=== PATIENT | male | born 1975 | race Caucasian/White ===

== ENCOUNTER 2016-12-05 00:27 | Emergency (ER) | payer MEDICAID ==
[2016-12-05 00:37] VITALS: RESP 20
[2016-12-05 00:54] LABS: BASO % 0.4 % (0.0-2.0); EOS % 0.8 % (0.0-4.0); HEMATOCRIT 49.5 % (35.0-51.0); LYMPH # 1.5 K/uL (1.0-4.3); LYMPH % 34.5 % (20.0-40.0); MEAN CELL VOLUME 81.9 fL (80.0-94.0); MEAN CORPUSCULAR HEMOGLOBIN 28.3 pg (27.0-31.0); MEAN CORPUSCULAR HGB CONC 34.6 g/dL (33.0-37.0); MEAN PLATELET VOLUME 8.2 fL (7.2-11.7); MONO # 0.3 K/uL (0.0-0.8); MONO % 5.9 % (0.0-10.0); NRBC % 0.4 % (0.0-2.0); RED CELL DISTRIBUTION WIDTH 12.9 % (11.5-14.5); WHITE BLOOD COUNT 4.3 K/uL (4.8-10.8)
[2016-12-05 02:38] LABS: RBC URINE 4 /hpf (0-3); URINE BILIRUBIN NEGATIVE (NEGATIVE); URINE BLOOD NEGATIVE (NEGATIVE); URINE COLOR Yellow (YELLOW); URINE GLUCOSE (UA) NORMAL (Normal); URINE KETONE NEGATIVE (NEGATIVE); URINE LEUKOCYTE ESTERASE NEG Leu/uL (Negative); URINE PROTEIN NEGATIVE (NEGATIVE); URINE UROBILINOGEN NORMAL mg/dL (0.2-1.0); WBC URINE < 1 /hpf (0-5)
[2016-12-05 03:05] LABS: ALB/GLOB RATIO 1.2 (1.0-2.1); ALKALINE PHOSPHATASE 79 U/L (38-126); ALT/SGPT 41 U/L (21-72); AST/SGOT 51 U/L (17-59); BLOOD UREA NITROGEN 12 mg/dL (9-20); CALCIUM 9.4 mg/dl (8.6-10.4); CARBON DIOXIDE 25 mmol/L (22-30); CHLORIDE 101 mmol/L (98-107); GFR AFRICAN-AMERICAN > 60; GLUCOSE,RANDOM 125 mg/dL (75-110); POTASSIUM 4.1 mmol/L (3.6-5.2); SODIUM 141 mmol/L (132-148); TOTAL PROTEIN 7.7 g/dL (6.3-8.3)
[2016-12-05] MEDS ORDERED: Alum-Mag Hydrox-Simethicone Susp (30 mL) PO STA (03:23)
[2016-12-05] MEDS ORDERED: Aluminum Hydroxide/Magnesium Hydroxide Susp (30 mL) ONE (03:25)
[2016-12-05 05:00] VITALS: O2SAT 98
--- NOTE | 2016-12-05 05:09 | C.PDOC ---
Time Seen by Provider: 12/05/16 00:40 Chief Complaint (Nursing): Abdominal Pain History Per: Patient, Family Onset/Duration Of Symptoms: Hrs (tonight), Waxing/Waning Current Symptoms Are (Timing): Still Present Severity: Moderate Location Of Pain/Discomfort: Epigastric Radiation Of Pain To:: Back Quality Of Discomfort: "Pain" Alleviating Factors: None Last Bowel Movement: Today Additional History Per: Prior Records Past Medical History Reviewed: Historical Data, Nursing Documentation, Vital Signs Vital Signs: Last Vital Signs Temp 97.4 F L 12/05/16 04:59 Pulse 68 12/05/16 04:59 Resp 20 12/05/16 04:59 BP 149/77 12/05/16 04:59 Pulse Ox 98 12/05/16 05:09 - Medical History PMH: HTN, Hyperlipidemia Surgical History: No Surg Hx Family History: States: Unknown Family Hx - Social History Hx Alcohol Use: No Hx Substance Use: No - Immunization History Hx Tetanus Toxoid Vaccination: No Hx Influenza Vaccination: Yes Hx Pneumococcal Vaccination: No Review Of Systems Except As Marked, All Systems Reviewed And Found Negative. Constitutional: Negative for: Fever Cardiovascular: Negative for: Chest Pain Respiratory: Negative for: Shortness of Breath Gastrointestinal: Negative for: Nausea, Vomiting, Diarrhea Genitourinary: Negative for: Dysuria Musculoskeletal: Negative for: Neck Pain Skin: Negative for: Rash Neurological: Negative for: Weakness, Numbness, Seizures, Altered Mental Status Physical Exam - Physical Exam Appears: Non-toxic, No Acute Distress Skin: Normal Color, Warm, Dry, No Rash Head: Atraumatic, Normacephalic Eye(s): bilateral: Normal Inspection, PERRL, EOMI Neck: Normal ROM, Supple Cardiovascular: Rhythm Regular Respiratory: Normal Breath Sounds, No Accessory Muscle Use Gastrointestinal/Abdominal: Soft, Tenderness (epigastric) Back: No CVA Tenderness Extremity: Normal ROM Neurological/Psych: Oriented x3, Normal Motor, Normal Sensation ED Course And Treatment - Laboratory Results Result Diagrams: 12/05/16 00:50 12/05/16 00:50 Lab Interpretation: No Acute Changes O2 Sat by Pulse Oximetry: 98 Pulse Ox Interpretation: Normal - CT Scan/US RUQ Sono Other Rad Studies (CT/US): Read By Radiologist, Radiology Report Reviewed CT/US Interpretation: IMPRESSION: . Cholelithiasis without evidence of cholecystitis. Progress Note: Pt's pain resolved. Pt is now asymptomatic. No abdominal pain or tenderness. Reassessment Condition: Improved Progress - Interventions Interventions:: Observation - Medications Administered Intravenous: Antiemetic, H-2 tim, Opiate - Data Reviewed Data Reviewed: Lab, Diagnostic imaging, Old records - Patient Status Patient status: Completely improved - Continuity of Care Discussed patient case with:: Patient, Family-HIPPA compliant, ED Nurse - Patient Plan Patient Plan: Discharge, F/U with PCP, Continue present meds Disposition Counseled Patient/Family Regarding: Studies Performed, Diagnosis, Need For Followup, Rx Given - Disposition Referrals: Joanna Barnes MD [Staff Provider] - Raymundo Leggett MD [Staff Provider] - Disposition: HOME/ ROUTINE Disposition Time: 06:03 Condition: IMPROVED Additional Instructions: Follow up with a General surgeon for further evaluation and treatment. Return to the ER if you develop fever, vomiting, pain that persists for hours, worsening of symptoms or if you have any other concerns. Prescriptions: oxyCODONE/Acetaminophen [Percocet 5/325 mg Tab] 1 tab PO Q4 PRN #12 tab PRN Reason: Pain, Severe (8-10) Instructions: Biliary Colic (ED) Forms: [employer] (German) - Clinical Impression Clinical Impression: Biliary colic
--- NOTE | 2016-12-05 05:51 | US ---
EXAM: US Abdomen Limited, Right Upper Quadrant CLINICAL HISTORY: 41 years old, male; Pain; Abdominal pain; Epigastric; Additional info: Epigastric pain TECHNIQUE: Real-time ultrasound of the right upper quadrant with image documentation. EXAM DATE/TIME: 12/05/2016 3:22 AM COMPARISON: No relevant prior studies available. FINDINGS: There is a negative sonographic Mccallum's sign per pathology technologist. Gallstones are present, one of which is lodged in the neck. No pericholecystic fluid. The gallbladder wall measures 2 mm which is within normal limits. The common bile duct measures 7 mm which is borderline dilated. No hepatic masses identified. The pancreas is suboptimally visualized. No right hydronephrosis. Right kidney measures 11 cm in length. IMPRESSION: Cholelithiasis without evidence of cholecystitis. Borderline dilated common bile duct. Recommend correlation with laboratory values.
[2016-12-05 06:17] VITALS: BP 149/70; PULSE 72; TEMP 97.3
== END 2016-12-05 06:16 | disposition home or self-care (01) ==
LOC: C.ER 00:27
DX: K80.20 Calculus of gallbladder without cholecystitis without obstruction (principal)
CPT/HCPCS: 76705; 80053; 81001; 83690; 84484; 85025; 96374; 96375; 99285; J2270; J2765

== ENCOUNTER 2017-04-30 23:17 | Inpatient (IN) | payer MEDICAID ==
[2017-04-30] MEDS ORDERED: Lactated Ringer's 1,000 ML IV STA (23:28)
[2017-04-30] MEDS ORDERED: Sodium Chloride 0.9% 1,000 ML IV ONE (23:28)
[2017-04-30] MEDS ORDERED: Morphine 4 MG/ML VIAL ONE (23:35)
[2017-04-30] MEDS ORDERED: Lactated Ringer's 1,000 ML ONE (23:35)
[2017-04-30] MEDS ORDERED: Sodium Chloride 0.9% 1,000 ML ONE (23:35)
[2017-04-30 23:36] LABS: BASO % 0.6 % (0.0-2.0); EOS # 0.1 K/uL (0.0-0.7); EOS % 1.9 % (0.0-4.0); HEMOGLOBIN 16.3 g/dL (12.0-18.0); LYMPH # 2.3 K/uL (1.0-4.3); LYMPH % 58.7 % (20.0-40.0); MEAN CORPUSCULAR HEMOGLOBIN 28.7 pg (27.0-31.0); MEAN PLATELET VOLUME 8.4 fL (7.2-11.7); MONO # 0.3 K/uL (0.0-0.8); MONO % 7.6 % (0.0-10.0); NEUT # 1.2 K/uL (1.8-7.0); NEUT % 31.2 % (50.0-75.0); NRBC % 0.1 % (0.0-2.0); RBC 5.67 Mil/uL (4.40-5.90); RED CELL DISTRIBUTION WIDTH 13.5 % (11.5-14.5); WHITE BLOOD COUNT 3.9 K/uL (4.8-10.8)
[2017-04-30 23:46] LABS: ALB/GLOB RATIO 1.2 (1.0-2.1); ALBUMIN 4.4 g/dL (3.5-5.0); ALT/SGPT 42 U/L (21-72); AST/SGOT 34 U/L (17-59); BLOOD UREA NITROGEN 12 mg/dL (9-20); CALCIUM 8.7 mg/dl (8.6-10.4); GFR AFRICAN-AMERICAN > 60; GFR NON-AFRICAN AMERICAN > 60; LIPASE 98 U/L (23-300)
--- NOTE | 2017-05-01 00:19 | C.PDOC ---
History Of Present Illness 41 year old male presents to the ER with a complaint of severe RUQ pain since approximately 19:00 after having dinner. Denies nausea, vomiting, fever, chills , chest pain, or SOB. Patient has a known Hx of gallstones but refused surgery. Patient has a PMHx of high cholesterol, no surgical Hx, no known allergies, and smokes 10 cigarettes a day for the past 15 years. Time Seen by Provider: 04/30/17 23:27 Chief Complaint (Nursing): Abdominal Pain History Per: Patient History/Exam Limitations: no limitations Onset/Duration Of Symptoms: Hrs Current Symptoms Are (Timing): Still Present Context: Food Location Of Pain/Discomfort: RUQ Radiation Of Pain To:: None Quality Of Discomfort: Unable To Describe Associated Symptoms: denies: Fever, Chills, Nausea, Vomiting, Chest Pain, Other (SOB) Exacerbating Factors: None Alleviating Factors: None Recent travel outside of the [place]: No Past Medical History Reviewed: Historical Data, Nursing Documentation, Vital Signs Vital Signs: Last Vital Signs Temp 98 F 05/01/17 01:35 Pulse 67 05/01/17 01:35 Resp 20 05/01/17 01:35 BP 162/97 H 05/01/17 01:35 Pulse Ox 98 05/01/17 02:36 - Medical History PMH: HTN, Hyperlipidemia Family History: States: Unknown Family Hx - Social History Hx Alcohol Use: No Hx Substance Use: No - Immunization History Hx Tetanus Toxoid Vaccination: No Hx Influenza Vaccination: Yes Hx Pneumococcal Vaccination: No Review Of Systems Constitutional: Negative for: Fever, Chills Cardiovascular: Negative for: Chest Pain, Palpitations Gastrointestinal: Positive for: Abdominal Pain. Negative for: Nausea, Vomiting Physical Exam - Physical Exam Appears: Non-toxic Skin: Normal Color, Warm, Dry Head: Atraumatic, Normacephalic Eye(s): bilateral: Normal Inspection Oral Mucosa: Moist Neck: Normal, Supple Chest: Symmetrical, No Tenderness Cardiovascular: Rhythm Regular Respiratory: Normal Breath Sounds, No Rales, No Rhonchi, No Wheezing Gastrointestinal/Abdominal: Bowel Sounds (Positive), Soft, Tenderness (RUQ), Guarding, No Rebound Neurological/Psych: Oriented x3, Normal Speech, Other (No focal deficits) ED Course And Treatment - Laboratory Results Result Diagrams: 04/30/17 23:31 04/30/17 23:31 O2 Sat by Pulse Oximetry: 98 (room air) Pulse Ox Interpretation: Normal - CT Scan/US Abdominal US Other Rad Studies (CT/US): Read By Radiologist, Radiology Report Reviewed CT/US Interpretation: EXAM: US Abdomen Limited, Right Upper Quadrant. CLINICAL HISTORY: 41 years old, male; Pain; Abdominal pain; Epigastric; Additional info: Ruq pain. TECHNIQUE: Real-time ultrasound of the right upper quadrant with image documentation. COMPARISON: US - RIGHT UPPER QUADRANT 12-05 04:36. FINDINGS: Liver: Normal echogenicity. No mass. No intrahepatic bile duct dilatation. Gallbladder: Gallstones. Nonmobile stone within neck. Sludge. No wall thickening. No. pericholecystic fluid. No sonographic Mccallum's sign. Common bile duct: Up to 0.86 cm in diameter. No stones. Pancreas: Obscured by overlying bowel gas. Right kidney: Normal echogenicity. No hydronephrosis. IMPRESSION: 1. Cholelithiasis. 2. Mild biliary ductal dilatation. Correlate with laboratory values. Consider MRCP. Medical Decision Making Medical Decision Making: Plan: * CMP * Lipase * CBC * Abdominal US * IV fluids * Morphine * Zofran Patient reports he is still in pain, 2nd dose of morphine ordered. Case discussed with surgical asst who agrees to accept patient for admission under Dr. Leggett. Patient still reports he is in pain, dose of dilaudid administered. Disposition - Disposition Disposition: HOSPITALIZED Condition: GOOD - Scribe Statement The provider has reviewed the documentation as recorded by the Scribe Herminio Penn All medical record entries made by the Scribsolomon were at my direction and personally dictated by me. I have reviewed the chart and agree that the record accurately reflects my personal performance of the history, physical exam, medical decision making, and the department course for this patient. I have also personally directed, reviewed, and agree with the discharge instructions and disposition.
--- NOTE | 2017-05-01 00:22 | US ---
EXAM: US Abdomen Limited, Right Upper Quadrant CLINICAL HISTORY: 41 years old, male; Pain; Abdominal pain; Epigastric; Additional info: Ruq pain TECHNIQUE: Real-time ultrasound of the right upper quadrant with image documentation. COMPARISON: US - RIGHT UPPER QUADRANT 2016-12-05 04:36 FINDINGS: Liver: Normal echogenicity. No mass. No intrahepatic bile duct dilatation. Gallbladder: Gallstones. Nonmobile stone within neck. Sludge. No wall thickening. No pericholecystic fluid. No sonographic Mccallum's sign. Common bile duct: Up to 0.86 cm in diameter. No stones. Pancreas: Obscured by overlying bowel gas. Right kidney: Normal echogenicity. No hydronephrosis. IMPRESSION: 1. Cholelithiasis. 2. Mild biliary ductal dilatation. Correlate with laboratory values. Consider MRCP.
[2017-05-01] MEDS ORDERED: Morphine 4 MG/ML VIAL ONE (00:29)
--- NOTE | 2017-05-01 00:58 | CP.PCM.HP ---
History of Present Illness - History of Present Illness History of Present Illness: General Surgery: Dr Leggett Pt is a 41M who presents with abdominal pain starting around 7PM last night. Pt reports pain is 8/10 located in the epigastrium. Pain radiates to RUQ and around to the right shoulder. Pt has associated nausea but no vomiting. Has been having regular BMs. Pt reports having similar pain around francia time which resolved spontaneously. Has known history of cholelithiasis. US shows no wall thickening, no pericholecystic fluid, but a dilated CBD and a stone within the neck of the gallbladder. Pt initially refusing GI consult and ERCP potential. States he only wants open surgery. Long conversation had regarding risks and benefits of all potential procedures. Pt states he wants to go home. Pt agrees to be admitted at least overnight for further evaluation in the morning. PMH: HLD PSH: denies Present on Admission - Present on Admission Any Indicators Present on Admission: No Review of Systems - Review of Systems All systems: reviewed and no additional remarkable complaints except (as per hpi ) Past Patient History - Past Social History Smoking Status: Heavy Smoker > 10 Cigarettes Daily - CARDIAC Hx Hypertension: Yes - GASTROINTESTINAL Other/Comment: GALL STONES - PSYCHIATRIC Hx Substance Use: No - SURGICAL HISTORY Hx Surgeries: No - ANESTHESIA Hx Anesthesia: No Hx Anesthesia Reactions: No Meds Allergies/Adverse Reactions: Allergies Allergy/AdvReac Type Severity Reaction Status Date / Time No Known Allergies Allergy Unverified 08/05/15 10:53 Physical Exam - Constitutional Appears: Non-toxic, No Acute Distress - Head Exam Head Exam: NORMOCEPHALIC - Eye Exam Eye Exam: Normal appearance. absent: Scleral icterus - ENT Exam ENT Exam: Mucous Membranes Dry - Respiratory Exam Respiratory Exam: absent: Accessory Muscle Use, Respiratory Distress - Cardiovascular Exam Cardiovascular Exam: REGULAR RHYTHM. absent: Tachycardia - GI/Abdominal Exam GI & Abdominal Exam: Soft, Tenderness (epigastric). absent: Distended, Firm, Guarding, Hernia - Neurological Exam Neurological exam: Alert, Oriented x3 - Psychiatric Exam Psychiatric exam: Normal Affect, Normal Mood - Skin Skin Exam: Normal Color, Warm Results - Vital Signs Recent Vital Signs: Last Vital Signs Temp 98 F 04/30/17 23:23 Pulse 67 04/30/17 23:23 Resp 20 04/30/17 23:23 BP 108/108 H 04/30/17 23:23 Pulse Ox 98 05/01/17 00:29 - Labs Result Diagrams: 04/30/17 23:31 04/30/17 23:31 Labs: Laboratory Results - last 24 hr 04/30/17 04/30/17 23:31 23:31 WBC 3.9 L RBC 5.67 Hgb 16.3 Hct 46.5 MCV 82.0 MCH 28.7 MCHC 35.0 RDW 13.5 Plt Count 206 MPV 8.4 Neut % (Auto) 31.2 L Lymph % (Auto) 58.7 H Gregg % (Auto) 7.6 Eos % (Auto) 1.9 Baso % (Auto) 0.6 Neut # 1.2 L Lymph # 2.3 Gregg # 0.3 Eos # 0.1 Baso # 0.0 Sodium 136 Potassium 3.2 L Chloride 99 Carbon Dioxide 26 Anion Gap 14 BUN 12 Creatinine 0.7 L Est GFR ( Amer) > 60 Est GFR (Non-Af Amer) > 60 Random Glucose 135 H Calcium 8.7 Total Bilirubin 0.8 AST 34 ALT 42 Alkaline Phosphatase 80 Total Protein 7.9 Albumin 4.4 Globulin 3.5 Albumin/Globulin Ratio 1.2 Lipase 98 Assessment & Plan - Assessment and Plan (Free Text) Assessment: 41M with biliary colic, dilated CBD Plan: NPO IV fluids GI consult MRCP will d/w Dr Oleksandr Cantu, PGY3
[2017-05-01] MEDS ORDERED: HYDROmorphone 1 mg/ml ISec IVP STA (01:05)
[2017-05-01] MEDS: Sodium Chloride 0.9% 1,000 ML IV SCH ×2 (10:31→21:30)
--- NOTE | 2017-05-01 10:58 | MRI ---
MRCP Indication: Dilated CBD Technique: Multiplanar, multisequence MR images of the abdomen were obtained, including heavily T2 weighted MRCP images of the biliary system. Rotating maximum intensity projection images of the biliary system were generated. A total of 523 images were submitted for review. Comparison: Limited abdominal ultrasound performed 04/30/17 Findings: Gallbladder wall thickening/pericholecystic edema. Cholelithiasis including large gallstone at the level of the gallbladder neck. There is no intrahepatic biliary ductal dilatation. The common bile duct measures approximately 8 mm in diameter without focal filling defect identified. The common bile duct appears within normal limits in caliber and tapers distally. The pancreatic duct does not appear dilated. No filling defects are identified in the common bile duct or pancreatic duct. The noncontrast imaged portions of the liver, adrenal glands, kidneys, spleen, and pancreas appear unremarkable. No bulky abdominal lymphadenopathy is seen. No ascites. No acute osseous abnormality is detected. Impression: Common bile duct appears mildly dilated without evidence of focal filling defect. Cholelithiasis including large gallstone at the level the gallbladder neck. Gallbladder wall thickening/ pericholecystic edema. Correlate clinically for possibility of acute cholecystitis.
[2017-05-01] MEDS ORDERED: Lactated Ringer's 1,000 ML IV ONE ×2 (13:05→15:07)
[2017-05-01] MEDS ORDERED: cefTRIAXone IV 1 gm in Dextros 50 ML IVPB ONE (13:05)
[2017-05-01] MEDS ORDERED: Bupivacaine HCl 0.5% PF (10 ml) Inj ONE (13:11)
[2017-05-01] MEDS: Bupivacaine HCl 0.5% PF (10 ml) Inj ONE ×2 (13:40→14:41)
[2017-05-01] MEDS ORDERED: Propofol 10 mg/ml Inj (20 ML) ONE ×2 (14:46)
[2017-05-01] MEDS ORDERED: Midazolam 2 MG/2 ML VIAL ONE (14:46)
[2017-05-01] MEDS ORDERED: Succinylcholine Chloride 20 mg/ml Syr (5 ml) IV ONE (14:47)
[2017-05-01] MEDS ORDERED: Rocuronium 10 mg/ml (5 ml) ONE (14:47)
[2017-05-01] MEDS ORDERED: HYDROmorphone 0.5 mg/0.5 ml ISec IVP PRN (15:08)
--- NOTE | 2017-05-01 15:08 | PCM.SURG1 ---
Surgeon's Initial Post Op Note - Surgeon's Notes Surgeon: Dr. Leggett Cellars Supervisor: erick Still PGY2, PGY4 Type of Anesthesia: General Endo Pre-Operative Diagnosis: cholecystitis Operative Findings: Inflammed gallbladder , large gallstone Post-Operative Diagnosis: Same Operation Performed: Laparoscopic cholecystectomy Specimen/Specimens Removed: gallbladder Estimated Blood Loss: EBL {In ML}: 20 Blood Products Given: N/A Drains Used: No Drains Post-Op Condition: Good Date of Surgery/Procedure: 05/01/17 Time of Surgery/Procedure: 15:08
[2017-05-02 01:22] VITALS: RESP 20; O2SAT 96
[2017-05-02] MEDS ORDERED: Oxycodone/Acetaminophen 5/325 mg Tab PO PRN (07:54)
[2017-05-02 08:12] LABS: HEMOGLOBIN 14.6 g/dL (12.0-18.0); MEAN CELL VOLUME 81.5 fL (80.0-94.0); MEAN CORPUSCULAR HGB CONC 35.5 g/dL (33.0-37.0); MEAN PLATELET VOLUME 9.1 fL (7.2-11.7); RBC 5.05 Mil/uL (4.40-5.90); RED CELL DISTRIBUTION WIDTH 13.7 % (11.5-14.5)
[2017-05-02 08:21] LABS: WHITE BLOOD COUNT 6.9 K/uL (4.8-10.8)
[2017-05-02 08:31] LABS: ALB/GLOB RATIO 1.2 (1.0-2.1); ALBUMIN 3.7 g/dL (3.5-5.0); ALT/SGPT 53 U/L (21-72); AST/SGOT 49 U/L (17-59); BLOOD UREA NITROGEN 11 mg/dL (9-20); CALCIUM 8.1 mg/dl (8.6-10.4); GFR AFRICAN-AMERICAN > 60; GFR NON-AFRICAN AMERICAN > 60
[2017-05-02 09:05] VITALS: BP 111/64; PULSE 86; TEMP 98.8
[2017-05-02] MEDS: Sodium Chloride 0.9% 1,000 ML IV SCH ×2 (10:16→10:22)
--- NOTE | 2017-05-02 11:13 | CP.PCM.DIS ---
Provider - Provider Date of Admission: 05/01/17 00:28 Attending physician: Raymundo Leggett MD Time Spent in preparation of Discharge (in minutes): 25 Diagnosis - Discharge Diagnosis (1) Cholecystitis with cholelithiasis Status: Acute Hospital Course - Lab Results Lab Results: Most Recent Lab Values WBC 6.9 K/uL (4.8-10.8) D 05/02/17 07:51 RBC 5.05 Mil/uL (4.40-5.90) 05/02/17 07:51 Hgb 14.6 g/dL (12.0-18.0) 05/02/17 07:51 Hct 41.1 % (35.0-51.0) 05/02/17 07:51 MCV 81.5 fL (80.0-94.0) 05/02/17 07:51 MCH 29.0 pg (27.0-31.0) 05/02/17 07:51 MCHC 35.5 g/dL (33.0-37.0) 05/02/17 07:51 RDW 13.7 % (11.5-14.5) 05/02/17 07:51 Plt Count 224 K/uL (130-400) 05/02/17 07:51 MPV 9.1 fL (7.2-11.7) 05/02/17 07:51 Neut % (Auto) 31.2 % (50.0-75.0) L 04/30/17 23:31 Lymph % (Auto) 58.7 % (20.0-40.0) H 04/30/17 23:31 Cache % (Auto) 7.6 % (0.0-10.0) 04/30/17 23:31 Eos % (Auto) 1.9 % (0.0-4.0) 04/30/17 23:31 Baso % (Auto) 0.6 % (0.0-2.0) 04/30/17 23:31 Neut # 1.2 K/uL (1.8-7.0) L 04/30/17 23:31 Lymph # 2.3 K/uL (1.0-4.3) 04/30/17 23:31 Cache # 0.3 K/uL (0.0-0.8) 04/30/17 23:31 Eos # 0.1 K/uL (0.0-0.7) 04/30/17 23:31 Baso # 0.0 K/uL (0.0-0.2) 04/30/17 23:31 Sodium 133 mmol/L (132-148) 05/02/17 07:51 Potassium 3.8 mmol/L (3.6-5.2) 05/02/17 07:51 Chloride 101 mmol/L (98-107) 05/02/17 07:51 Carbon Dioxide 24 mmol/L (22-30) 05/02/17 07:51 Anion Gap 12 (10-20) 05/02/17 07:51 BUN 11 mg/dL (9-20) 05/02/17 07:51 Creatinine 0.8 mg/dL (0.8-1.5) 05/02/17 07:51 Est GFR ( Amer) > 60 05/02/17 07:51 Est GFR (Non-Af Amer) > 60 05/02/17 07:51 POC Glucose (mg/dL) 85 mg/dL (65-110) 05/01/17 11:43 Random Glucose 110 mg/dL (75-110) 05/02/17 07:51 Calcium 8.1 mg/dl (8.6-10.4) L 05/02/17 07:51 Total Bilirubin 0.7 mg/dL (0.2-1.3) 05/02/17 07:51 AST 49 U/L (17-59) 05/02/17 07:51 ALT 53 U/L (21-72) 05/02/17 07:51 Alkaline Phosphatase 64 U/L (38-126) 05/02/17 07:51 Total Protein 6.7 g/dL (6.3-8.3) 05/02/17 07:51 Albumin 3.7 g/dL (3.5-5.0) 05/02/17 07:51 Globulin 3.0 gm/dL (2.2-3.9) 05/02/17 07:51 Albumin/Globulin Ratio 1.2 (1.0-2.1) 05/02/17 07:51 Lipase 98 U/L (23-300) 04/30/17 23:31 - Hospital Course Hospital Course: 41 y/o M presented to the ED on 05/01/17 w/ abd pain in the RUQ/epigastric region. Pt found to have acute cholecytitis. Pt underwent laparoscopic cholecystectomy. Pt tolerated the procedure well w/ no complications. This morning, pt reports minimal abd pain, controlled w/ medication. tolerating regular diet. (+)flatus. Discharge Exam - Head Exam Head Exam: ATRAUMATIC, NORMOCEPHALIC - Eye Exam Eye Exam: Normal appearance - ENT Exam ENT Exam: Mucous Membranes Moist - Respiratory Exam Respiratory Exam: NORMAL BREATHING PATTERN. absent: Accessory Muscle Use, Respiratory Distress - Cardiovascular Exam Cardiovascular Exam: absent: Bradycardia, Tachycardia - GI/Abdominal Exam GI & Abdominal Exam: Soft, Tenderness (appropriate yesi-incision TTP). absent: Distended, Firm, Guarding Additional comments: dressing c/d/i - Extremities Exam Extremities exam: normal inspection - Neurological Exam Neurological exam: Alert, Oriented x3 - Psychiatric Exam Psychiatric exam: Normal Affect, Normal Mood - Skin Skin Exam: Dry, Normal Color, Warm Discharge Plan - Discharge Medications Prescriptions: oxyCODONE/Acetaminophen [Percocet 5/325 mg Tab] 2 tab PO Q4H PRN #20 tab PRN Reason: Pain, Moderate (4-7) - Follow Up Plan Condition: GOOD Disposition: HOME/ ROUTINE Instructions: Cholecystitis (DC), Cholecystitis (GEN), Laparoscopic Cholecystectomy (DC), Abdominal Pain (ED) Additional Instructions: Actvity as tolerated. follow up at Dr. Leggett's office in 1-2 weeks Keep steristrips on. Ok to take shower in 2 days. May take bandaid off. Low fat diet. Take pain med 1-2 pills every 6 hrs if needed. Referrals: Raymundo Leggett MD [Staff Provider] -
[2017-05-03] MEDS ORDERED: Pneumococcal 23-Valent Vaccine IM ONE (10:00)
[2017-05-03] MEDS ORDERED: Influenza Vaccine 60 mcg/0.5 mL SYR (4YR UP) IM ONE (10:00)
--- NOTE | 2017-05-04 09:14 | OP ---
DATE: 05/01/2017 PREOPERATIVE DIAGNOSES: Acute cholecystitis and cholelithiasis. POSTOPERATIVE DIAGNOSES: Acute cholecystitis and cholelithiasis. PROCEDURE PERFORMED: Laparoscopic cholecystectomy. SURGERON: Raymundo Leggett MD. CUSTOMER SALES DISTRIBUTOR: Dr. Maharaj. FINDINGS: There is markedly distended thickened wall gallbladder, completely enveloped by omental adhesions. A large stone was noted in the ampulla close to the cystic duct. There is tremendous to moderate edema noted in the cholecystoduodenal ligament area. The duodenum was adherent to the ampulla of the gallbladder. DESCRIPTION OF PROCEDURE: Under general anesthesia, the patient was prepared and draped in the usual sterile fashion. CO2 was insufflated to about 15 mmHg pressure. An incision was made around the umbilicus through which a 12 mm port was inserted . With the camera inside and under direct vision, an epigastric port and a 5 mm right upper quadrant ports were inserted. The patient was placed in a reverse Trendelenburg position, turned to the left side. The adhesions were attempted to be taken down, but the tremendous amount of distention of the gallbladder prevented it from being grasped, therefore the gallbladder was partially emptied by aspirating it with a large bore needle. The adhesions were taken down all the way to the cholecystoduodenal ligament area and the duodenum was dissected away from the ampulla. The cystic duct and cystic arteries were then isolated. It was transected between Hemoclips. The gallbladder was then removed from the liver bed with electrocautery and then was extracted through the umbilical port. It was necessary to enlarge the umbilical incision to accommodate the passage of this large gallbladder. Area was irrigated with copious amount of saline solution, irrigating fluid suctioned out. CO2 allowed to escape from the peritoneal cavity. Trocars removed. The wound closed in a routine fashion. Estimated blood loss was about 30 mL. No complications. Raymundo Leggett MD
== END 2017-05-02 12:15 | disposition home or self-care (01) | DRG 494 ==
LOC: C.ER 23:17 → C.9E 05-01 00:28 → C.6T 05-01 00:52
PROVIDERS: ADMIT Surgery; ATTEND Surgery
PROC: 0FT44ZZ Resection of Gallbladder, Percutaneous Endoscopic Approach (ICD-10-PCS; principal; 2017-05-01 13:00)
DX: K80.10 Calculus of gallbladder with chronic cholecystitis without obstruction (principal); E78.5 Hyperlipidemia, unspecified; I10 Essential (primary) hypertension; Z87.891 Personal history of nicotine dependence

== ENCOUNTER 2018-08-04 21:22 | Emergency (ER) | payer MEDICAID ==
[2018-08-04 21:34] VITALS: O2SAT 98
--- NOTE | 2018-08-04 22:01 | C.PDOC ---
History Of Present Illness 42 year old male presents to the ED c/o headache, posterior neck pain, elevated blood pressure. Patient also c/o chest pain with deep breathing, slight cough as well. Patient denies visual changes, fever, chills, nausea, vomit, diarrhea, rash, weakness, numbness. Chief Complaint (Nursing): High Blood Pressure History Per: Patient History/Exam Limitations: no limitations Onset/Duration Of Symptoms: Hrs Current Symptoms Are (Timing): Still Present Associated Symptoms: Headache Quality Of Symptoms: Asymptomatic Recent travel outside of the [place]: No Additional History Per: Patient Past Medical History Reviewed: Historical Data, Nursing Documentation, Vital Signs Vital Signs: Last Vital Signs Temp 98.6 F 08/04/18 21: Pulse 81 08/04/18 21:27 Resp 22 08/04/18 21:27 BP 154/104 H 08/04/18 21: Pulse Ox 98 08/04/18 21:27 - Medical History PMH: Gall Bladder Disease, HTN, Hyperlipidemia Denies: Chronic Kidney Disease Surgical History: No Surg Hx - [facility] Procedures RESECTION OF GALLBLADDER, PERCUTANEOUS ENDOSCOPIC APPROACH (05/01/17) Family History: States: Unknown Family Hx - Social History Hx Alcohol Use: No Hx Substance Use: No - Immunization History Hx Tetanus Toxoid Vaccination: No Hx Influenza Vaccination: Yes Hx Pneumococcal Vaccination: No Review Of Systems Constitutional: Negative for: Fever, Chills Eyes: Negative for: Vision Change Cardiovascular: Positive for: Chest Pain. Negative for: Palpitations Respiratory: Positive for: Cough. Negative for: Shortness of Breath Gastrointestinal: Negative for: Nausea, Vomiting, Abdominal Pain Skin: Negative for: Rash Neurological: Positive for: Headache. Negative for: Weakness, Numbness, Dizziness Physical Exam - Physical Exam Appears: Non-toxic, No Acute Distress Skin: Normal Color, Warm, Dry Head: Atraumatic, Normacephalic Eye(s): bilateral: Normal Inspection, PERRL, EOMI Oral Mucosa: Moist Neck: Normal ROM, No Midline Cervical Tenderness, Supple Chest: Symmetrical Cardiovascular: Rhythm Regular Respiratory: Normal Breath Sounds, No Rales, No Rhonchi, No Wheezing Gastrointestinal/Abdominal: Soft, No Tenderness Extremity: Normal ROM, No Tenderness, No Swelling Neurological/Psych: Oriented x3, Normal Speech, Normal Cognition Gait: Steady ED Course And Treatment - Laboratory Results Result Diagrams: 08/04/18 22:15 08/04/18 23:38 ECG: Interpreted By Me, Viewed By Me ECG Rhythm: Sinus Rhythm, 2nd Degree HB Mobitz II ECG Interpretation: Normal, No Acute Changes Interpretation Of ECG: NSR, normal tracings Rate From EC O2 Sat by Pulse Oximetry: 98 (ON RA) Pulse Ox Interpretation: Normal - Radiology CXR: Interpreted by Me, Viewed By Me CXR Interpretation: Yes: No Acute Disease, Other (mild cardiomegaly.). No: Infiltrates - CT Scan/US CT head Other Rad Studies (CT/US): Read By Radiologist, Radiology Report Reviewed CT/US Interpretation: EXAM: CT Head Without IV contrast. CLINICAL HISTORY: Hedache. TECHNIQUE: Axial computed tomography images of the head/brain without intravenous contrast. COMPARISON: None provided. FINDINGS: BRAIN: No acute intraparenchymal hemorrhage. No mass lesion. No CT evidence for acute territorial infarct. No midline shift or extra-axial collections. VENTRICLES: No hydrocephalus. ORBITS: The orbits are unremarkable. SINUSES AND MASTOIDS: The paranasal sinuses and mastoid air cells are clear. BONES: No fracture. SO FT TISSUES: Unremarkable. IMPRESSION: No acute intracranial abnormality. . Electronically signed on Aug 04, 2018 11:25:46 PM EDT by: Arnulfo Powell M.D., AYO Certified By ABR & CBCCT. Fellowship Trained MRI and CT Specialist. Medical Decision Making Medical Decision Making: Plan: * CT head * EKG * Labs * CXR * Toradol 30 mg IVP Disposition Counseled Patient/Family Regarding: Studies Performed, Diagnosis - Disposition Referrals: [facility] at [facility] [Outside] Disposition: HOME/ ROUTINE Disposition Time: 23:46 Condition: STABLE Instructions: High Blood Pressure (DC), Low Salt Diet Forms: [facility] (Yi) - POA Present On Arrival: None - Clinical Impression Clinical Impression: Hypertension - Scribe Statement The provider has reviewed the documentation as recorded by the Scribe Tony Grady All medical record entries made by the Scribe were at my direction and personally dictated by me. I have reviewed the chart and agree that the record accurately reflects my personal performance of the history, physical exam, medical decision making, and the department course for this patient. I have also personally directed, reviewed, and agree with the discharge instructions and disposition.
[2018-08-04 22:12] LABS: BASO % 0.2 % (0.0-2.0); LYMPH # 2.1 K/uL (1.0-4.3); LYMPH % 52.7 % (20.0-40.0); MEAN CELL VOLUME 81.8 fL (80.0-94.0); MEAN CORPUSCULAR HEMOGLOBIN 28.4 pg (27.0-31.0); MEAN CORPUSCULAR HGB CONC 34.7 g/dL (33.0-37.0); MEAN PLATELET VOLUME 7.9 fL (7.2-11.7); MONO # 0.2 K/uL (0.0-0.8); MONO % 5.5 % (0.0-10.0); NEUT # 1.6 K/uL (1.8-7.0); NEUT % 40.6 % (50.0-75.0); NRBC % 0.1 % (0.0-2.0); RBC 5.27 Mil/uL (4.40-5.90); RED CELL DISTRIBUTION WIDTH 13.5 % (11.5-14.5)
[2018-08-04 23:38] LABS: BLOOD UREA NITROGEN 10 mg/dL (9-20)
[2018-08-04 23:39] LABS: ALB/GLOB RATIO 1.6 (1.0-2.1); ALBUMIN 4.3 g/dL (3.5-5.0); ALT/SGPT 25 U/L (21-72); AST/SGOT 34 U/L (17-59); CALCIUM 9.5 mg/dl (8.6-10.4); GFR NON-AFRICAN AMERICAN > 60
[2018-08-04 23:47] VITALS: BP 123/89; PULSE 73; RESP 14; TEMP 98.5
--- NOTE | 2018-08-05 08:36 | CT ---
Date of service: 08/04/2018 PROCEDURE: CT HEAD WITHOUT CONTRAST. HISTORY: Headache COMPARISON: None available. TECHNIQUE: Axial computed tomography images were obtained through the head/brain without intravenous contrast. Radiation dose: Total exam DLP = 1008.27 mGy-cm. This CT exam was performed using one or more of the following dose reduction techniques: Automated exposure control, adjustment of the mA and/or kV according to patient size, and/or use of iterative reconstruction technique. FINDINGS: HEMORRHAGE: No intracranial hemorrhage. BRAIN: Boone-white matter differentiation is preserved. There is no mass, mass effect or abnormal extra-axial fluid collection. There is no territorial infarction. The midline sagittal structures are normal. VENTRICLES: The ventricles are normal in size, shape and configuration. CALVARIUM: There is no calvarial fracture or extracranial soft tissue swelling. PARANASAL SINUSES: Predominantly clear. MASTOID AIR CELLS: Predominantly clear. OTHER FINDINGS: None. IMPRESSION: No acute intracranial abnormality. A preliminary report was provided by [facility].
--- NOTE | 2018-08-05 09:45 | RAD ---
Date of service: 08/04/2018 HISTORY: Chest pain COMPARISON: 09/06/2017. TECHNIQUE: Chest PA and lateral FINDINGS: LINES AND TUBES: None. LUNG AND PLEURA: The lungs are well inflated and clear. No pleural effusion or pneumothorax. HEART AND MEDIASTINUM: There is mild cardiomegaly. No aortic atherosclerotic calcifications present. The hilar and mediastinal contours are within normal limits. SKELETAL STRUCTURES: The bony structures are within normal limits for the patient's age. VISUALIZED UPPER ABDOMEN: Normal. OTHER FINDINGS: None. IMPRESSION: No active pulmonary disease.
--- NOTE | 2018-08-05 12:51 | CARD ---
APPROVED REPORT Date of service: 08/04/2018 EKG Measurement Heart [id number] [id number] <Conclusion> Normal sinus rhythm Normal ECG
== END 2018-08-04 23:47 | disposition home or self-care (01) ==
LOC: C.ER 21:22
DX: I10 Essential (primary) hypertension (principal)
CPT/HCPCS: 70450; 71046; 80053; 84484; 85025; 85378; 93005; 96374; 99284; J1885